=== PATIENT | male | born 1990 | race Caucasian/White ===

== ENCOUNTER 2023-07-04 08:13 | Emergency (ER) | payer OTHER ==
--- NOTE | 2023-07-04 08:36 | ED ---
Alcohol HPI - General Chief Complaint: Alcohol Stated Complaint: withdrawls Source: patient Mode of arrival: ambulatory Limitations: no limitations - History of Present Illness Initial Comments: 32-year-old male presents to the emergency department for "alcohol withdrawal". Patient states that he thinks he is going through withdrawal. States his last drink was around 5:00 this morning. He normally drinks a pint of alcohol a day. Patient is requesting Ativan for withdrawal. He is requesting help in getting sober. States he has been through rehab multiple times. Patient is accompanied by a friend who confirms this. Upon putting the patient into his exam room he does attempt to get out of the wheelchair and fell and hit his head. There was no loss of consciousness. HPI is limited because of patient's current intoxicated state - Related Data Home Medications Medication Instructions Recorded Confirmed Cyanocobalamin [Vitamin B-12] 1,000 mcg PO DAILY 09/19/15 09/19/15 Allergies Allergy/AdvReac Type Severity Reaction Status Date / Time No Known Allergies Allergy Verified 09/19/15 16:04 Review of Systems ROS Statement: Those systems with pertinent positive or pertinent negative responses have been documented in the HPI. ROS Other: All systems not noted in ROS Statement are negative. Past Medical History Past Medical History: No Reported History Additional Past Medical History / Comment(s): back pain, history of delirium tremens, history of alcoholism, history of chronic back pain, history of anxiety, and history of panic disorder. History of Any Multi-Drug Resistant Organisms: None Reported Past Surgical History: No Surgical Hx Reported Past Anesthesia/Blood Transfusion Reactions: No Reported Reaction Past Psychological History: Anxiety Past Alcohol Use History: Abuse, Daily, Heavy Past Drug Use History: Marijuana - Past Family History Father Additional Family Medical History / Comment(s): shoulder sx Mother History Unknown: Yes Additional Family Medical History / Comment(s): healthy General Exam Limitations: altered mental status General appearance: alert, appears intoxicated Head exam: Present: other (Small hematoma left forehead) Eye exam: Present: normal appearance, PERRL, EOMI. Absent: scleral icterus, conjunctival injection, periorbital swelling ENT exam: Present: normal exam, mucous membranes moist Respiratory exam: Present: normal lung sounds bilaterally. Absent: respiratory distress, wheezes, rales, rhonchi, stridor Cardiovascular Exam: Present: normal rhythm, tachycardia, normal heart sounds. Absent: systolic murmur, diastolic murmur, rubs, gallop, clicks GI/Abdominal exam: Present: soft, normal bowel sounds. Absent: distended, tende rness, guarding, rebound, rigid Neurological exam: Present: altered Psychiatric exam: Present: agitated Course Vital Signs 07/04/23 07/04/23 07/04/23 08:20 08:40 10:10 Temperature 97.7 F Pulse Rate 111 H 106 H 90 Respiratory 20 18 20 Rate Blood Pressure 127/81 118/76 104/71 O2 Sat by Pulse 96 96 96 Oximetry 07/04/23 07/04/23 11:00 11:30 Temperature Pulse Rate 73 71 Respiratory 20 17 Rate Blood Pressure 105/67 92/79 O2 Sat by Pulse 96 96 Oximetry Medical Decision Making - Medical Decision Making Was pt. sent in by a medical professional or institution (, PA, GENOMICS SCIENTIST, urgent care, hospital, or assisted...) When possible be specific @ -No Did you speak to anyone other than the patient for history (EMS, parent, family, police, friend...)? What history was obtained from this source @I spoke with the patient's friend Did you review nursing and triage notes (agree or disagree)? Why? @ -I reviewed and agree with nursing and triage notes Were old charts reviewed (outside hosp., previous admission, EMS record, old EKG, old radiological studies, urgent care reports/EKG's, assisted records)? Report findings @ -No old charts were reviewed Differential Diagnosis (chest pain, altered mental status, abdominal pain women, abdominal pain men, vaginal bleeding, weakness, fever, dyspnea, syncope, headache, dizziness, GI bleed, back pain, seizure, CVA, palpatations, mental health, musculoskeletal)? @ -Alcohol intoxication, alcohol withdrawal, drug use, depression EKG interpreted by me (3pts min.). @ -Not done X-rays interpreted by me (1pt min.). @ -None done CT interpreted by me (1pt min.). @ -Yes and demonstrates no acute intracranial process. No cervical fractures U/S interpreted by me (1pt. min.). @ -None done What testing was considered but not performed or refused? (CT, X-rays, U/S, labs)? Why? @ -None What meds were considered but not given or refused? Why? @ -CIWA protocol however patient refused admission Did you discuss the management of the patient with other professionals (professionals i.e. , PA, GENOMICS SCIENTIST, lab, RT, psych nurse, nursing home social worker, consulting solution manager, teacher, upscale security officer, case managers)? Give summary @ -No Was smoking cessation discussed for >3mins.? @ -No Was critical care preformed (if so, how long)? @ -No Were there social determinants of health that impacted care today? How? (Homelessness, low income, unemployed, alcoholism, drug addiction, transportation, low edu. Level, literacy, decrease access to med. care, half-way, rehab)? @ -Alcoholism Was there de-escalation of care discussed even if they declined (Discuss DNR or withdrawal of care, Hospice)? DNR status @ -No What co-morbidities impacted this encounter? (DM, HTN, Smoking, COPD, CAD, Cancer, CVA, ARF, Chemo, Hep., AIDS, mental health diagnosis, sleep apnea, morbid obesity)? @ -Alcohol abuse Was patient admitted / discharged? Hospital course, mention meds given and route, prescriptions, significant lab abnormalities, going to OR and other pertinent info. @ -Upon arrival patient was placed into room for. He did attempt to get out of the wheelchair and hit his head. Patient placed in a c-collar and does go for CT however he removes the collar on his own even though we have asked him multiple times to leave it on. Patient is aggressive towards staff. He is upset that he is not receiving 4 mg of Ativan at a time. Patient is significantly intoxicated and does not demonstrate any signs of withdrawal. Laboratory studies are conducted. As patient has withdrawn from alcohol significant the plan was to offer admission. I was unable to get to this point as the patient becomes agitated with staff and his friend at bedside. Patient wants to leave so he can "go do shots". It was recommended by the staff that the patient await my recommendations however he becomes physical. Patient gets out of bed and verbally is screaming at staff. Multiple attempts to de-escalate the patient however he still remains threatening. Friend is willing to take him home. I instructed staff to not physically restrain patient as to prevent anyone from getting hurt as the patient cannot be de-escalated. The friend reports that he will take the patient home but plans to cut ties with the patient as he has done this multiple times in the past with being verbally aggressive towards healthcare staff and leaving AGAINST MEDICAL ADVICE. Patient was instructed by nursing staff to return should he be agreeable to admission Undiagnosed new problem with uncertain prognosis? @ -No Drug Therapy requiring intensive monitoring for toxicity (Heparin, Nitro, Insulin, Cardizem)? @ -No Were any procedures done? @ -No Diagnosis/symptom? @ -Acute alcohol intoxication, blunt head trauma, fall, history of significant alcohol abuse Acute, or Chronic, or Acute on Chronic? @ -Acute Uncomplicated (without systemic symptoms) or Complicated (systemic symptoms)? @ -Complicated Side effects of treatment? @ -No Exacerbation, Progression, or Severe Exacerbation? @ -No Poses a threat to life or bodily function? How? (Chest pain, USA, DC, pneumonia, PE, COPD, DKA, ARF, appy, cholecystitis, CVA, Diverticulitis, Homicidal, Suicidal, threat to staff... and all critical care pts) @ -Yes - Lab Data Result diagrams: 07/04/23 09:33 07/04/23 09:33 Lab Results 07/04/23 07/04/23 07/04/23 Range/Units 08:36 09:33 09:33 WBC 6.1 (3.8-10.6) k/uL RBC 5.07 (4.30-5.90) m/uL Hgb 15.1 (13.0-17.5) gm/dL Hct 44.2 (39.0-53.0) % MCV 87.1 (80.0-100.0) fL MCH 29.7 (25.0-35.0) pg MCHC 34.1 (31.0-37.0) g/dL RDW 12.8 (11.5-15.5) % Plt Count 230 (150-450) k/uL MPV 7.8 Neutrophils % 52 % Lymphocytes % 38 % Monocytes % 3 % Eosinophils % 4 % Basophils % 1 % Neutrophils # 3.2 (1.3-7.7) k/uL Lymphocytes # 2.3 (1.0-4.8) k/uL Monocytes # 0.2 (0-1.0) k/uL Eosinophils # 0.3 (0-0.7) k/uL Basophils # 0.1 (0-0.2) k/uL Sodium 145 (137-145) mmol/L Potassium 3.6 (3.5-5.1) mmol/L Chloride 109 H (98-107) mmol/L Carbon Dioxide 25 (22-30) mmol/L Anion Gap 11 mmol/L BUN 7 L (9-20) mg/dL Creatinine 0.64 L (0.66-1.25) mg/dL Est GFR (CKD-EPI)AfAm >90 (>60 ml/min/1.73 sqM) Est GFR (CKD-EPI)NonAf >90 (>60 ml/min/1.73 sqM) Glucose 106 H (74-99) mg/dL POC Glucose (mg/dL) 84 (70-110) mg/dL POC Glu Want Ad Clerk ID Amada Negrete Calcium 8.5 (8.4-10.2) mg/dL Magnesium 1.8 (1.6-2.3) mg/dL Total Bilirubin 0.7 (0.2-1.3) mg/dL AST 50 (17-59) U/L ALT 21 (4-49) U/L Alkaline Phosphatase 85 (38-126) U/L Total Protein 6.8 (6.3-8.2) g/dL Albumin 4.2 (3.5-5.0) g/dL Lipase 103 (23-300) U/L Serum Alcohol 357 H* mg/dL Disposition Clinical Impression: Acute alcohol intoxication Disposition: LEFT AGAINST MEDICAL ADVICE Condition: Undetermined Is patient prescribed a controlled substance at d/c from ED?: No Referrals: Nonstaff,Physician [Primary Care Provider] - 1-2 days Time of Disposition: 11:58
[2023-07-04 08:38] LABS: Glucose,Whole Blood 84 mg/dL (70-110)
[2023-07-04 08:53] VITALS: TEMP 97.7
--- NOTE | 2023-07-04 09:36 | CT ---
EXAMINATION TYPE: CT brain margie wo con DATE OF EXAM: 07/04/2023 COMPARISON: 09/19/2015 HISTORY: FALL CT DLP: 1243.7 mGycm, Automated exposure control for dose reduction was used. CONTRAST: Patient injected with 0 mL of Isovue 300. CT of the brain is performed utilizing 3 mm thick sections through the posterior fossa and 3 mm thick sections through the remaining calvarium. Study is performed within 24 hours of arrival to the hospital. No abnormal hyperdensity is present to suggest an acute intracranial hemorrhage. No mass lesion is evident. No acute infarcts are evident. Ventricles and sulci are appropriate for the patient age. Paranasal sinuses and mastoid air cells within the [id number] are clear. IMPRESSIONS: 1. No acute intracranial process. Follow-up MRI can be performed as clinically indicated CT cervical spine. COMPARISON: None CT of the cervical spine is performed in the axial plane at 2 mm thick sections. Reconstructed image s in the coronal, and sagittal plane are reviewed on the computer. No acute fractures are evident. Vertebral body alignment is normal. Disc heights are preserved. Vertebral body heights are preserved. No spinal canal stenosis is evident. No neural foraminal stenosis is evident. Anterior vertebral body spurring is present C5-6. IMPRESSION: 1. No acute osseous abnormality cervical spine
[2023-07-04] MEDS: SODIUM CHLORIDE 0.9% 1,000 ML IV STA (10:08)
[2023-07-04] MEDS: LORazepam 2 MG/ML INJ IV STA (10:09)
[2023-07-04 10:45] LABS: ALT 21 U/L (4-49); AST 50 U/L (17-59); African American GFR (CKD) >90 (>60 ml/min/1.73 sqM); Albumin 4.2 g/dL (3.5-5.0); Alkaline Phosphatase 85 U/L (38-126); Anion Gap 11 mmol/L; Blood Urea Nitrogen 7 mg/dL (9-20); Calcium 8.5 mg/dL (8.4-10.2); Carbon Dioxide 25 mmol/L (22-30); Chloride 109 mmol/L (98-107); Glucose 106 mg/dL (74-99); Lipase 103 U/L (23-300); Magnesium 1.8 mg/dL (1.6-2.3); Non-African American GFR(CKD) >90 (>60 ml/min/1.73 sqM); Potassium 3.6 mmol/L (3.5-5.1); Sodium 145 mmol/L (137-145); Total Bilirubin 0.7 mg/dL (0.2-1.3); Total Protein 6.8 g/dL (6.3-8.2)
[2023-07-04 10:51] LABS: Basophils # (A) 0.1 k/uL (0-0.2); Basophils % (A) 1 %; Eosinophils # (A) 0.3 k/uL (0-0.7); Eosinophils % (A) 4 %; HCT 44.2 % (39.0-53.0); HGB 15.1 gm/dL (13.0-17.5); Lymphocytes # (A) 2.3 k/uL (1.0-4.8); Lymphocytes % (A) 38 %; MCH 29.7 pg (25.0-35.0); MCHC 34.1 g/dL (31.0-37.0); MCV 87.1 fL (80.0-100.0); Mean Platelet Volume 7.8; Monocytes # (A) 0.2 k/uL (0-1.0); Monocytes % (A) 3 %; Neutrophils # (A) 3.2 k/uL (1.3-7.7); Neutrophils % (A) 52 %; Platelet Count 230 k/uL (150-450); RBC 5.07 m/uL (4.30-5.90); RDW 12.8 % (11.5-15.5); WBC 6.1 k/uL (3.8-10.6)
[2023-07-04 11:08] LABS: Alcohol 357 mg/dL
[2023-07-04 12:13] VITALS: BP 92/79; PULSE 71; RESP 17
== END 2023-07-04 11:58 | disposition left against medical advice (07) ==
LOC: EC 08:13
DX: F10.129 Alcohol abuse with intoxication, unspecified (principal); F12.90 Cannabis use, unspecified, uncomplicated; Z86.59 Personal history of other mental and behavioral disorders; Z53.29 Procedure and treatment not carried out because of patient's decision for other reasons; Y90.8 Blood alcohol level of 240 mg/100 ml or more
CPT/HCPCS: 36415; 80053; 83690; 83735; 85025; 72125; 70450; 99285; 96374; 96361; G0480; J2060; 80320

== ENCOUNTER 2023-07-18 02:36 | Inpatient (IN) | payer OTHER ==
[2023-07-18] MEDS ORDERED: LORazepam 2 MG/ML INJ IV PRN (03:31)
--- NOTE | 2023-07-18 03:33 | ED ---
Alcohol HPI - General Source: patient Mode of arrival: ambulatory Limitations: no limitations <Markell Hernandez - Last Filed: 07/18/23 04:01> <Gabe Dan - Last Filed: 07/18/23 04:53> - General Chief Complaint: Alcohol Stated Complaint: Withdraw Time Seen by Provider: 07/18/23 03:06 - History of Present Illness Initial Comments: 32-year-old male presenting to the ED with a chief complaint of alcohol withdrawal. Patient reports that he drinks half a gallon of 100 proof vodka on a daily basis. States that his last drink was at 9 PM yesterday. Reports that he does have history of delirium tremens in the past. Currently notes some nausea, headache, tremors, and [id number]. No fever or chills. Denies auditory or visual hallucinations. No other complaints at this time. (Markell Hernandez) - Related Data Home Medications Medication Instructions Recorded Confirmed Cyanocobalamin [Vitamin B-12] 1,000 mcg PO DAILY 09/19/15 09/19/15 Allergies Allergy/AdvReac Type Severity Reaction Status Date / Time No Known Allergies Allergy Verified 07/18/23 02:57 Review of Systems ROS Other: All systems not noted in ROS Statement are negative. <Markell Hernandez - Last Filed: 07/18/23 04:01> ROS Other: All systems not noted in ROS Statement are negative. <Gabe Dan - Last Filed: 07/18/23 04:53> ROS Statement: Those systems with pertinent positive or pertinent negative responses have been documented in the HPI. Past Medical History Past Medical History: No Reported History Additional Past Medical History / Comment(s): back pain, history of delirium tremens, history of alcoholism, history of chronic back pain, history of anxiety, and history of panic disorder. History of Any Multi-Drug Resistant Organisms: None Reported Past Surgical History: No Surgical Hx Reported Past Anesthesia/Blood Transfusion Reactions: No Reported Reaction Past Psychological History: Anxiety Smoking Status: Former smoker Past Alcohol Use History: Abuse, Daily, Heavy Past Drug Use History: Marijuana - Past Family History Father Additional Family Medical History / Comment(s): shoulder sx Mother History Unknown: Yes Additional Family Medical History / Comment(s): healthy <Markell Hernandez - Last Filed: 07/18/23 04:01> General Exam Limitations: no limitations General appearance: alert, in no apparent distress Eye exam: Present: normal appearance ENT exam: Present: mucous membranes moist Respiratory exam: Present: normal lung sounds bilaterally Cardiovascular Exam: Present: tachycardia GI/Abdominal exam: Present: soft (No tenderness to palpation.) Extremities exam: Present: other (Extremities tremulous upon extension) Neurological exam: Present: alert, oriented X3, other Skin exam: Present: warm, other (Palms are moist.) <Markell Hernandez - Last Filed: 07/18/23 04:01> Course Vital Signs 07/18/23 07/18/23 02:53 04:40 Temperature 98.0 F Pulse Rate 135 H 115 H Respiratory 18 20 Rate Blood Pressure 109/72 131/92 O2 Sat by Pulse 95 94 L Oximetry Procedures - Central Line Placement Right IJ Consent Obtained: verbal consent, emergent situation Patient Placed on Monitor/Pulse Ox: Yes MD Prep: mask, gown, gloves Central Line Prep: Povidone-Iodine 1% Local Anesthesia Used: Lidocaine 1% Ultrasound Used for Placement: Yes Central Line Lumen Inserted: triple Bloods Obtained for Lab: No Central Line Position: good blood return, all ports aspirated, flushed, capped, sutured in place with 2-0 silk, sutured in place with 3-0 nylon Dressing Applied: Tegaderm Post Procedure X-Ray: tip of catheter in good position Patient Tolerated Procedure: well <Gabe Dan - Last Filed: 07/18/23 04:53> Medical Decision Making <Markell Hernandez - Last Filed: 07/18/23 04:01> - Lab Data Result diagrams: 07/18/23 03:45 07/18/23 04:00 <Gabe Dan - Last Filed: 07/18/23 04:53> - Medical Decision Making Was pt. sent in by a medical professional or institution (, PA, CLIENT SERVICES COORDINATOR, urgent care, hospital, or halfway...) When possible be specific @ -No Did you speak to anyone other than the patient for history (EMS, parent, family, police, friend...)? What history was obtained from this source @ -No Did you review nursing and triage notes (agree or disagree)? Why? @ -I reviewed and agree with nursing and triage notes Were old charts reviewed (outside hosp., previous admission, EMS record, old EKG, old radiological studies, urgent care reports/EKG's, halfway records)? Report findings @ -Prior charts reviewed showing history of alcohol withdrawal. At prior visit was very agitated and left AGAINST MEDICAL ADVICE. Differential Diagnosis (chest pain, altered mental status, abdominal pain women, abdominal pain men, vaginal bleeding, weakness, fever, dyspnea, syncope, headache, dizziness, GI bleed, back pain, seizure, CVA, palpatations, mental health, musculoskeletal)? @ -Not applicable EKG interpreted by me (3pts min.). @ -As above X-rays interpreted by me (1pt min.). @ -None done CT interpreted by me (1pt min.). @ -None done U/S interpreted by me (1pt. min.). @ -None done What testing was considered but not performed or refused? (CT, X-rays, U/S, labs)? Why? @ -None What meds were considered but not given or refused? Why? @ -None Did you discuss the management of the patient with other professionals (professionals i.e. , PA, CLIENT SERVICES COORDINATOR, lab, RT, psych nurse, social welfare clerk, log check scaler, teacher, parole hearing officer, pillowcase cleaner)? Give summary @ -No Was smoking cessation discussed for >3mins.? @ -No Was critical care preformed (if so, how long)? @ -No Were there social determinants of health that impacted care today? How? (Homelessness, low income, unemployed, alcoholism, drug addiction, transportation, low edu. Level, literacy, decrease access to med. care, fdc, rehab)? @ -No Was there de-escalation of care discussed even if they declined (Discuss DNR or withdrawal of care, Hospice)? DNR status @ -No What co-morbidities impacted this encounter? (DM, HTN, Smoking, COPD, CAD, Cancer, CVA, ARF, Chemo, Hep., AIDS, mental health diagnosis, sleep apnea, morbid obesity)? @ -Alcohol abuse Was patient admitted / discharged? Hospital course, mention meds given and route, prescriptions, significant lab abnormalities, going to OR and other pertinent info. @ -Disposition currently pending. Case signed out to my attending physician, Dr. Dan for further management. (Markell Hernandez) Patient care signed out to me by Merlin. 32-year-old male presents to the ER for alcohol withdrawal symptoms. Patient highly motivated to quit EtOH. He is he is appearing to show significant signs of withdrawal. Difficulty obtaining IV. Right IJ central venous catheter placed under ultrasound guidance. Placement is adequate. Case discussed with nurse practitioner Mr. Blair of the ICU is willing to accept patient care to the ICU. (Gabe Dan) - Lab Data Lab Results 07/18/23 07/18/23 Range/Units 03:45 04:00 WBC 6.4 (3.8-10.6) k/uL RBC 5.42 (4.30-5.90) m/uL Hgb 15.7 (13.0-17.5) gm/dL Hct 47.5 (39.0-53.0) % MCV 87.7 (80.0-100.0) fL MCH 28.9 (25.0-35.0) pg MCHC 32.9 (31.0-37.0) g/dL RDW 15.1 (11.5-15.5) % Plt Count 249 (150-450) k/uL MPV 8.5 Neutrophils % 59 % Lymphocytes % 29 % Monocytes % 7 % Eosinophils % 2 % Basophils % 1 % Neutrophils # 3.8 (1.3-7.7) k/uL Lymphocytes # 1.9 (1.0-4.8) k/uL Monocytes # 0.5 (0-1.0) k/uL Eosinophils # 0.1 (0-0.7) k/uL Basophils # 0.1 (0-0.2) k/uL Sodium 142 (137-145) mmol/L Potassium 4.5 (3.5-5.1) mmol/L Chloride 106 (98-107) mmol/L Carbon Dioxide 24 (22-30) mmol/L Anion Gap 12 mmol/L BUN 7 L (9-20) mg/dL Creatinine 0.61 L (0.66-1.25) mg/dL Est GFR (CKD-EPI)AfAm >90 (>60 ml/min/1.73 sqM) Est GFR (CKD-EPI)NonAf >90 (>60 ml/min/1.73 sqM) Glucose 88 (74-99) mg/dL Calcium 9.0 (8.4-10.2) mg/dL Total Bilirubin 1.4 H (0.2-1.3) mg/dL AST 74 H (17-59) U/L ALT 29 (4-49) U/L Alkaline Phosphatase 95 (38-126) U/L Total Protein 7.7 (6.3-8.2) g/dL Albumin 4.7 (3.5-5.0) g/dL Serum Alcohol 235 H* mg/dL Critical Care Time Critical Care Time: Yes Total Critical Care Time: 33 <Gabe Dan - Last Filed: 07/18/23 04:53> Disposition <Markell Hernandez - Last Filed: 07/18/23 04:01> Decision Time: 04:53 <Gabe Dan - Last Filed: 07/18/23 04:53> Clinical Impression: Alcohol withdrawal Disposition: ADMITTED IP TO THIS HOSP Condition: Critical Referrals: Nonstaff,Physician [Primary Care Provider] - 1-2 days
[2023-07-18] MEDS: THIAMINE 100 MG/ML 2 ML VIAL IM STA (03:58)
[2023-07-18] MEDS: LORazepam 2 MG/ML INJ IV STA ×2 (03:58→04:30)
[2023-07-18] MEDS: LORazepam 2 MG/ML INJ IM STA (03:58)
[2023-07-18 04:01] LABS: Basophils # (A) 0.1 k/uL (0-0.2); Basophils % (A) 1 %; Eosinophils # (A) 0.1 k/uL (0-0.7); Eosinophils % (A) 2 %; HCT 47.5 % (39.0-53.0); HGB 15.7 gm/dL (13.0-17.5); Lymphocytes # (A) 1.9 k/uL (1.0-4.8); Lymphocytes % (A) 29 %; MCH 28.9 pg (25.0-35.0); MCHC 32.9 g/dL (31.0-37.0); MCV 87.7 fL (80.0-100.0); Mean Platelet Volume 8.5; Monocytes # (A) 0.5 k/uL (0-1.0); Monocytes % (A) 7 %; Neutrophils # (A) 3.8 k/uL (1.3-7.7); Neutrophils % (A) 59 %; Platelet Count 249 k/uL (150-450); RBC 5.42 m/uL (4.30-5.90); RDW 15.1 % (11.5-15.5); WBC 6.4 k/uL (3.8-10.6)
[2023-07-18 04:22] LABS: ALT 29 U/L (4-49); African American GFR (CKD) >90 (>60 ml/min/1.73 sqM); Anion Gap 12 mmol/L; Blood Urea Nitrogen 7 mg/dL (9-20); Carbon Dioxide 24 mmol/L (22-30); Chloride 106 mmol/L (98-107); Glucose 88 mg/dL (74-99); Non-African American GFR(CKD) >90 (>60 ml/min/1.73 sqM); Sodium 142 mmol/L (137-145)
[2023-07-18 04:31] LABS: Alcohol 235 mg/dL; Potassium 4.5 mmol/L (3.5-5.1); Total Protein 7.7 g/dL (6.3-8.2)
[2023-07-18 04:32] LABS: AST 74 U/L (17-59); Albumin 4.7 g/dL (3.5-5.0); Alkaline Phosphatase 95 U/L (38-126); Total Bilirubin 1.4 mg/dL (0.2-1.3)
[2023-07-18] MEDS: SODIUM CHLORIDE 0.9% 1,000 ML IV STA (04:45)
[2023-07-18] MEDS ORDERED: NALOXONE 0.4 MG/ML 1 ML VIAL IV PRN (04:53)
--- NOTE | 2023-07-18 05:00 | XR ---
EXAMINATION TYPE: XR chest 1V portable DATE OF EXAM: 07/18/2023 COMPARISON: Chest x-ray June 28, 2014 HISTORY: Central line insertion. TECHNIQUE: Single frontal view of the chest is obtained. FINDINGS: There is right internal jugular central venous catheter terminating in the right heart. No pneumothorax seen bilaterally. Lungs remain clear. The cardiac silhouette size is stable and within n ormal limits. The osseous structures are intact. IMPRESSION: As above.
[2023-07-18] MEDS: LORazepam 2 MG/ML INJ IV PRN ×2 (05:09→09:32)
[2023-07-18 06:07] LABS: Glucose,Whole Blood 112 mg/dL (70-110)
[2023-07-18] MEDS: SODIUM CHLORIDE 0.9% 1,000 ML IV SCH (06:16)
--- NOTE | 2023-07-18 06:33 | P.CNPUL ---
History of Present Illness Consult date: 07/18/23 Requesting physician: Gabe Dan Reason for consult: other (ICU management; acute alcohol withdrawal delirium tremens) Chief complaint: Alcohol withdrawal History of present illness: I am seeing this patient in consultation today in the emergency room for acute alcohol withdrawal delirium tremens. Patient is a 32-year-old white male with past medical history significant for alcoholism, reportedly drinks half a gallon of vodka per day. He has history of previous alcohol w ithdrawal requiring mechanical intubation, previous alcohol withdrawal seizures anxiety disorder, marijuana use, smoker. Last seizure reported in 2019. He did have a recent ER visit 07/04/2023 for the same, and left AGAINST MEDICAL ADVICE. He lives in [place], [place], but is in the area visiting his girlfriend. His last drink was reportedly yesterday at 9 PM. He presented to the emergency room earlier this morning with nausea and vomiting, headaches, generalized tremors, [id number]. Denies auditory or visual hallucinations. Denies infectious symptoms. Denies hematemesis. Denies history of esophageal varices. Denies history of previous EGD. Denies diarrhea or gabriel blood loss or melena. Denies abdominal pain. He was actually intoxicated on arrival with a serum alcohol level 235. CBC and BMP on arrival unremarkable. LFTs with an AST of 74, ALT of 29, ALP of 95. Normal saline is infusing at 120 MLS per hour. A right IJ triple-lumen catheter was placed because the patient has poor peripheral IV access. Chest x-ray was done to confirm placement. No acute cardiopulmonary process noted. He is currently sitting up in bed, on room air, he is anxious. His oriented x3. He is tachycardic on bedside monitor with a heart rate of 120 bpm. He has generalized tremoring. Admits nausea, but is eating potatoe chips and drinking Pedialyte. Diaphoretic. Most recent CIWA score 22. Patient has received a total of 6 mg of Ativan so far. He has been started on the CIWA protocol. Vital signs are stable. Review of Systems REVIEW OF SYSTEMS: CONSTITUTIONAL: Denies any recent significant weight loss or weight gain. EYES: Denies change in vision. EARS, NOSE, MOUTH, THROAT: denies sore throat, rhinorrhea. CARDIOVASCULAR: Denies chest pain, palpitations or syncopal episodes. RESPIRATORY: Denies shortness of breath, cough, congestion or hemoptysis. GASTROINTESTINAL: See HPI GENITOURINARY: Denies hematuria, denies infections. MUSKULOSKELETAL: Denies pain, denies swelling. INTEGUMENTARY: Denies rash, denies eczema. NEUROLOGICAL: last reported seizure was 2019. See HPI PSYCHIATRIC: Admits anxiety, denies depression. HEMATOLOGIC/LYMPHATIC: Denies anemia, denies enlarged lymph node Past Medical History Past Medical History: No Reported History Additional Past Medical History / Comment(s): back pain, history of delirium tremens, history of alcoholism, history of chronic back pain, history of anxiety, and history of panic disorder. History of Any Multi-Drug Resistant Organisms: None Reported Past Surgical History: No Surgical Hx Reported Past Anesthesia/Blood Transfusion Reactions: No Reported Reaction Past Psychological History: Anxiety Smoking Status: Former smoker Past Alcohol Use History: Abuse, Daily, Heavy Past Drug Use History: Marijuana - Past Family History Father Additional Family Medical History / Comment(s): shoulder sx Mother History Unknown: Yes Additional Family Medical History / Comment(s): healthy Medications and Allergies Home Medications Medication Instructions Recorded Confirmed Type Cyanocobalamin [Vitamin B-12] 1,000 mcg PO DAILY 09/19/15 09/19/15 History Allergies Allergy/AdvReac Type Severity Reaction Status Date / Time No Known Allergies Allergy Verified 07/18/23 02:57 Physical Exam Vitals: Vital Signs Temp Pulse Resp BP Pulse Ox 07/18/23 05:20 98 20 147/75 96 07/18/23 05:00 118 H 22 139/91 98 07/18/23 04:40 115 H 20 131/92 94 L 07/18/23 02:53 98.0 F 135 H 18 109/72 95 Intake and Output 07/17/23 07/17/23 07/18/23 14:59 22:59 06:59 Other: Weight 72.575 kg GENERAL EXAM: Alert, 32-year-old white male, anxious, diaphoretic, tachycardic. HEAD: Normocephalic and atraumatic EYES: Normal reaction of pupils, equal size. NOSE: Clear with pink turbinates. THROAT: No erythema or exudates. NECK: No masses, no JVD. CHEST: No chest wall deformity. LUNGS: Equal air entry with no crackles, wheeze, rhonchi or dullness. On room air. No conversational dyspnea or accessory muscle use.. CVS: S1 and S2 normal with no audible murmur, regular rhythm. No extra heart sounds ABDOMEN: No hepatosplenomegaly, active bowel sounds, no guarding or rigidity. SPINE: No scoliosis or deformity SKIN: No rashes CENTRAL NERVOUS SYSTEM: Anxious, oriented x 3, generalized resting tremor, no focal deficits, tone is normal in all 4 extremities. EXTREMITIES: There is no peripheral edema, clubbing, or cyanosis. Peripheral pulses are intact. Results - Laboratory Findings CBC and BMP: 07/18/23 03:45 07/18/23 04:00 Abnormal lab findings: Abnormal Labs 07/18/23 07/18/23 04:00 06:05 BUN 7 L Creatinine 0.61 L POC Glucose (mg/dL) 112 H Total Bilirubin 1.4 H AST 74 H Serum Alcohol 235 H* - Diagnostic Findings Chest x-ray: image reviewed Assessment and Plan Assessment: Acute alcohol intoxication, impending alcohol withdrawal delirium tremens History of history of alcoholism, reportedly drinks 1/2 gallon of vodka per day, last drink reportedly yesterday at 9 PM History of alcohol withdrawal seizures, last reported seizure 2020 History of chronic anxiety and panic disorder Marijuana use Plan: Patient's medications, labs, chest x-ray reviewed Central line was inserted because of poor peripheral IV access, tip is at the Cavoatrial junction on chest x-ray Patient has been started on the CIWA protocol, received a total of 6 mg of Ativan so far Provide Vitamin B1 supplementation Seizure precautions. urine drug screen pending Patient will be admitted to the intensive care unit for impending alcohol withdrawal delirium tremens I have personally seen and examined the patient, performed the documentation and the assessment and plan as written. Number of minutes spent on the visit:20 Time with Patient: Greater than 30
[2023-07-18] MEDS: FOLIC ACID 1 MG TAB PO SCH (09:32)
[2023-07-18] MEDS: QUEtiapine 50 MG TAB PO SCH (09:32)
[2023-07-18] MEDS: MULTIVITAMINS, THERA 1 EACH TAB PO SCH (09:32)
[2023-07-18 09:43] LABS: Appearance,Urine Cloudy (Clear); Bilirubin,Urine Negative (Negative); Blood,Urine Negative (Negative); Calcium Oxalate Crystals,Urine Occasional /hpf; Color,Urine Yellow; Glucose,Urine (UA) Negative (Negative); Ketones,Urine 1+ (Negative); Leukocyte Esterase,Urine Trace (Negative); Mucus,Urine Many /hpf; Nitrite,Urine Negative (Negative); PH, Urine 7.5 (5.0-8.0); Protein,Urine 1+ (Negative); Specific Gravity,Urine 1.026 (1.001-1.035); Squamous Epithelial Cell,Urine 1 /hpf (0-4); WBC,Urine 6 /hpf (0-5)
[2023-07-18 09:52] LABS: Amphetamine Screen,Urine Not Detected (NotDetected); Barbiturate Screen,Urine Detected (NotDetected); Benzodiazepines Screen,Urine Not Detected (NotDetected); Cocaine Screen,Urine Not Detected (NotDetected); Methadone Screen, Urine Not Detected (NotDetected); Opiate Screen,Urine Not Detected (NotDetected); Oxycodone Screen, Urine Not Detected (NotDetected); Phencyclidine Screen,Urine Not Detected (NotDetected); Tricyclic Antidepressant,Urine Not Detected (NotDetected); Urn Cannabinoid Scrn Not Detected (NotDetected)
--- NOTE | 2023-07-18 13:39 | P.HPIM ---
History of Present Illness H&P Date: 07/18/23 This is a pleasant 32-year-old male with medical history of chronic alcoholism, anxiety and panic disorder. Patient reports drinking a half a gallon of vodka daily and has been on a 12-day binge. Patient was recently hospitalized at [facility] he states he was at [facility] for similar complaints of alcohol withdrawal and seizure. States that he did leave AGAINST MEDICAL ADVICE and has been drinking ever since. Noted that he is on Eliquis 5 mg twice a day states that he was diagnosed with a blood clot in his left arm. We will request reports from [facility] for review. Eliquis has been resumed. He does report prior history of alcohol withdrawal seizure and delirium tremens he was admitted to the hospital under medicine and started on Ativan CIWA protocol subsequently he was admitted to the intensive care unit for a CIWA score of 22 after receiving 6 mg of IV Ativan earlier this morning. Chest x-ray admission shows central line insertion in place with no pneumothorax seen bilaterally lungs remain clear. EKG revealing sinus tachycardia heart rate of [address] or T wave changes noted. Hemoglobin is stable at 15.7, BUN of 7, creatinine of 0.61 magnesium at 2.1. Patient's bilirubin is mildly elevated at 1.4 with an AST of 74. Urinalysis is not suggestive of infection and his urine drug toxicology is positive for barbiturates and serum alcohol level of 235. REVIEW OF SYSTEMS: CONSTITUTIONAL: No fever, no malaise, no fatigue. HEENT: No recent visual problems or hearing problems. Denied any sore throat. CARDIOVASCULAR: No chest pain, orthopnea, PND, no palpitations, no syncope. PULMONARY: No shortness of breath, no cough, no hemoptysis. GASTROINTESTINAL: No diarrhea, no nausea, no vomiting, no abdominal pain. NEUROLOGICAL: No headaches, no weakness, no numbness. Reports auditory hallucinations he states that the TV is moving around the wall. HEMATOLOGICAL: Denies any bleeding or petechiae. GENITOURINARY: Denies any burning micturition, frequency, or urgency. MUSCULOSKELETAL/RHEUMATOLOGICAL: Denies any joint pain, swelling, or any muscle pain. ENDOCRINE: Denies any polyuria or polydipsia. The rest of the 14-point review of systems is negative. PHYSICAL EXAMINATION: GENERAL: The patient is alert and oriented x3, not in any acute distress. Well developed, well nourished. HEENT: Pupils are round and equally reacting to light. EOMI. No scleral icterus. No conjunctival pallor. Normocephalic, atraumatic. No pharyngeal erythema. No thyromegaly. CARDIOVASCULAR: S1 and S2 present. No murmurs, rubs, or gallops. PULMONARY: Chest is clear to auscultation, no wheezing or crackles. ABDOMEN: Soft, nontender, nondistended, normoactive bowel sounds. No palpable organomegaly. MUSCULOSKELETAL: No joint swelling or deformity. EXTREMITIES: No cyanosis, clubbing, or pedal edema. NEUROLOGICAL: Gross neurological examination did not reveal any focal deficits. Patient is tremulous resting in bed. SKIN: No rashes. Assessment and plan -Acute alcohol intoxication with impending delirium tremens patient has history of alcohol withdrawal seizure and will be monitored closely in the intensive care unit patient is currently on IV Ativan CIWA protocol with close monitoring may require IV medication. -History of deep vein thrombosis of the left arm per patient had a prior hospitalization he has been resumed on Eliquis and reports will be obtained from outside hospital. -History of anxiety and panic disorder not currently on any medication for this -Mildly elevated LFTs secondary to chronic alcoholism GI prophylaxis DVT prophylaxis maintained on Eliquis full code Patient will be monitored in the intensive care unit on IV Ativan CIWA protocol. Will follow-up labs in the morning and we are pending reports of outside hospital. Pulmonary certified peer specialist is following closely. The impression and plan of care has been dictated by Sarah Nova Nurse Practitioner as directed. Dr. Lilliana MD I have performed a history and physical examination and medical decision making of this patient, discussed the same with the dictator, and agree with the dictators assessment and plan as written, documented as a scribe. Based on total visit time, I have performed more than 50% of this visit. Past Medical History Past Medical History: No Reported History Additional Past Medical History / Comment(s): back pain, history of delirium tremens, history of alcoholism, history of chronic back pain, history of anxiety, and history of panic disorder. History of Any Multi-Drug Resistant Organisms: None Reported Past Surgical History: No Surgical Hx Reported Past Anesthesia/Blood Transfusion Reactions: No Reported Reaction Past Psychological History: Anxiety Smoking Status: Former smoker Past Alcohol Use History: Abuse, Daily, Heavy Past Drug Use History: Marijuana - Past Family History Father Additional Family Medical History / Comment(s): shoulder sx Mother History Unknown: Yes Additional Family Medical History / Comment(s): healthy Medications and Allergies Home Medications Medication Instructions Recorded Confirmed Type Apixaban [Eliquis] 5 mg PO BID 07/18/23 07/18/23 History Allergies Allergy/AdvReac Type Severity Reaction Status Date / Time No Known Allergies Allergy Verified 07/18/23 06:56 Physical Exam Vitals: Vital Signs Temp Pulse Resp BP Pulse Ox 07/18/23 13:00 78 98/62 93 L 07/18/23 12:30 78 100/63 93 L 07/18/23 12:00 75 17 104/66 95 07/18/23 11:30 80 104/64 94 L 07/18/23 11:00 82 18 108/70 94 L 07/18/23 10:00 81 16 121/84 93 L 07/18/23 09:30 92 16 108/77 96 07/18/23 09:00 95 18 105/68 96 07/18/23 08:00 85 21 106/62 92 L 07/18/23 07:30 89 19 113/69 93 L 07/18/23 07:10 93 23 113/69 94 L 07/18/23 07:00 100 23 117/82 94 L 07/18/23 06:50 94 23 117/82 93 L 07/18/23 06:40 98.2 F 97 20 117/82 94 L 07/18/23 06:30 107 H 20 130/83 94 L 07/18/23 06:20 107 H 13 130/83 93 L 07/18/23 06:10 107 H 13 130/83 95 07/18/23 06:05 28 H 07/18/23 05:20 98 20 147/75 96 07/18/23 05:00 118 H 22 139/91 98 07/18/23 04:40 115 H 20 131/92 94 L 07/18/23 02:53 98.0 F 135 H 18 109/72 95 Intake and Output 07/17/23 07/18/23 07/18/23 22:59 06:59 14:59 Intake Total 240 240 Output Total 0 400 Balance 240 -160 Intake: IV 240 Sodium Chloride 0.9% 1, 240 000 ml @ 120 mls/hr IV . Q8H20M [facility] Rx#:[id number] Intake, IV Titration 240 Amount Sodium Chloride 0.9% 1, 240 000 ml @ 120 mls/hr IV . Q8H20M [facility] Rx#:[id number] Output: Urine 0 400 Other: Voiding Method Toilet Urinal Weight 72.575 kg Results CBC & Chem 7: 07/18/23 03:45 07/18/23 04:00 Labs: Abnormal Lab Results - Last 24 Hours (Table) 07/18/23 07/18/23 07/18/23 Range/Units 04:00 06:05 09:20 BUN 7 L (9-20) mg/dL Creatinine 0.61 L (0.66-1.25) mg/dL POC Glucose (mg/dL) 112 H (70-110) mg/dL Total Bilirubin 1.4 H (0.2-1.3) mg/dL AST 74 H (17-59) U/L Urine Protein 1+ H (Negative) Urine Ketones 1+ H (Negative) Ur Leukocyte Esterase Trace H (Negative) Urine WBC 6 H (0-5) /hpf Calcium Oxalate Crystal Occasional H (None) /hpf Urine Mucus Many H (None) /hpf Ur Barbiturates Screen (NotDetected) Serum Alcohol 235 H* mg/dL 07/18/23 Range/Units 09:20 BUN (9-20) mg/dL Creatinine (0.66-1.25) mg/dL POC Glucose (mg/dL) (70-110) mg/dL Total Bilirubin (0.2-1.3) mg/dL AST (17-59) U/L Urine Protein (Negative) Urine Ketones (Negative) Ur Leukocyte Esterase (Negative) Urine WBC (0-5) /hpf Calcium Oxalate Crystal (None) /hpf Urine Mucus (None) /hpf Ur Barbiturates Screen Detected H (NotDetected) Serum Alcohol mg/dL Assessment and Plan Time with Patient: Less than 30
[2023-07-18] MEDS: APIXABAN 5 MG TAB PO SCH (14:33)
[2023-07-18] MEDS: chlordiazePOXIDE 25 MG CAP PO SCH (23:04)
[2023-07-19 04:33] VITALS: TEMP 97.8
--- NOTE | 2023-07-19 06:08 | P.PN ---
Subjective Progress Note Date: 07/19/23 Principal diagnosis: Alcohol withdrawal syndrome. I am seeing this patient in consultation today in the emergency room for acute alcohol withdrawal delirium tremens. Patient is a 32-year-old white male with past medical history significant for alcoholism, reportedly drinks half a gallon of vodka per day. He has history of previous alcohol withdrawal requiring mechanical intubation, previous alcohol withdrawal seizures anxiety disorder, marijuana use, smoker. Last seizure reported in 2019. He did have a recent ER visit 07/04/2023 for the same, and left AGAINST MEDICAL ADVICE. He lives in [place], [place], but is in the area visiting his girlfriend. His last drink was reportedly yesterday at 9 PM. He presented to the emergency room earlier this morning with nausea and vomiting, headaches, generalized tremors, [id number]. Denies auditory or visual hallucinations. Denies infectious symptoms. Denies hematemesis. Denies history of esophageal varices. Denies history of previous EGD. Denies diarrhea or gabriel blood loss or melena. Denies abdominal pain. He was actually intoxicated on arrival with a serum alcohol level 235. CBC and BMP on arrival unremarkable. LFTs with an AST of 74, ALT of 29, ALP of 95. Normal saline is infusing at 120 MLS per hour. A right IJ triple-lumen catheter was placed because the patient has poor peripheral IV acc ess. Chest x-ray was done to confirm placement. No acute cardiopulmonary process noted. He is currently sitting up in bed, on room air, he is anxious. His oriented x3. He is tachycardic on bedside monitor with a heart rate of 120 bpm. He has generalized tremoring. Admits nausea, but is eating potatoe chips and drinking Pedialyte. Diaphoretic. Most recent CIWA score 22. Patient has received a total of 6 mg of Ativan so far. He has been started on the CIWA protocol. Vital signs are stable. Progress note dated July 19, 2023. 32-year-old male with a history of chronic alcohol abuse, and, alcohol withdrawal syndrome. The patient was seen in consultation yesterday. He is seen again today in room 264. He is currently on room air. He is getting saline at 120 cc an hour. He has been getting Ativan, Seroquel, and Librium, as needed. Clinically, according to the nurse, he has been stable. No new labs today. His labs from July 17, have been reviewed. Objective - Vital Signs Vital signs: Vital Signs Temp 97.8 F 07/19/23 04:00 Pulse 73 07/19/23 05:00 Resp 20 07/19/23 05:00 BP 120/85 07/19/23 05:00 Pulse Ox 95 07/19/23 05:00 FiO2 Intake & Output 07/18/23 07/18/23 07/19/23 06:59 18:59 06:59 Intake Total 248 735 5408 Output Total 0 400 850 Balance 240 -160 720 Weight 72.575 kg 79.3 kg Intake: IV 240 1200 Sodium Chloride 0.9% 1, 240 1200 000 ml @ 120 mls/hr IV . Q8H20M [facility] Rx#:[id number] Intake, IV Titration 240 Amount Sodium Chloride 0.9% 1, 240 000 ml @ 120 mls/hr IV . Q8H20M [facility] Rx#:[id number] Oral 370 Output: Urine 0 400 850 Other: Voiding Method Toilet Toilet Urinal Urinal - Exam No acute distress, oriented 3. Currently on room air. HEENT examination is grossly unremarkable. Mucous membranes are moist. No oral lesions. Neck supple. Full range of motion. No adenopathy thyromegaly or neck vein dist ention. Cardiovascular examination reveals regular rhythm rate. S1-S2 normal. No S3 or S4. No discernible murmur noted. Heart rate 73 bpm. Lungs reveal clear breath sounds. Breath sounds are equal bilaterally. No adventitious lung sounds including wheezes rhonchi or crackles. Room air satur ation is 95%. Abdomen soft bowel sounds are heard. No masses or tenderness. Extremities are intact. No cyanosis clubbing or edema. Skin is without rash or lesion. Neurologic examination is brief but nonfocal. - Labs CBC & Chem 7: 07/18/23 03:45 07/18/23 04:00 Labs: Abnormal Lab Results - Last 24 Hours (Table) 07/18/23 07/18/23 07/18/23 Range/Units 06:05 09:20 09:20 POC Glucose (mg/dL) 112 H (70-110) mg/dL Urine Protein 1+ H (Negative) Urine Ketones 1+ H (Negative) Ur Leukocyte Esterase Trace H (Negative) Urine WBC 6 H (0-5) /hpf Calcium Oxalate Crystal Occasional H (None) /hpf Urine Mucus Many H (None) /hpf Ur Barbiturates Screen Detected H (NotDetected) Assessment and Plan Assessment: Acute alcohol intoxication, with impending alcohol withdrawal syndrome/delirium tremens. History of chronic alcohol abuse, drinking 1/2 gallon of vodka, daily. History of alcohol withdrawal seizures/rum fits. History of chronic anxiety and panic disorder. History of marijuana use. Plan: Plan dated July 19, 2023. Currently, the patient is doing relatively well. The patient is currently on room air. He is getting saline at 120 cc an hour. His alcohol withdrawal syndrome is being managed with Ativan as needed, Librium, and Seroquel. No additional recommendations are made. The patient could likely be moved out of the intensive care unit, sometime later today. We will continue to follow and make recommendations along the way. Labs, x-rays, and medications are reviewed. Prognosis is guarded. The patient is counseled about the importance of alcohol cessation. Time with Patient: Less than 30
[2023-07-19] MEDS: THIAMINE 100 MG TAB PO SCH (08:38)
[2023-07-19 09:46] VITALS: BP 127/88; PULSE 69; RESP 19
--- NOTE | 2023-07-21 12:39 | P.DS ---
Providers Date of admission: 07/18/23 04:53 Expected date of discharge: 07/19/23 Attending physician: Chandu Guadalupe Consults: 07/18/23 04:53 Consult Physician Stat Consulting Provider: Glynn Montalvo Reason/Comments: icu patient Do you want consulting provider notified?: Yes Primary care physician: Stated None Hospital Course: Final diagnosis -Acute alcohol intoxication with impending delirium tremens maintained on CIWA protocol -History of deep vein thrombosis of the left arm per patient had a prior hospitalization he has been resumed on Eliquis and reports will be obtained from outside hospital. -History of anxiety and panic disorder not currently on any medication for this -Mildly elevated LFTs secondary to chronic alcoholism, trending down GI prophylaxis DVT prophylaxis maintained on Eliquis full code Discharge disposition Patient is being discharged in a stable condition with guarded prognosis to home. Patient will follow-up with his primary care provider in [place] in the outpatient setting upon discharge. Patient is to continue with Librium taper and patient will be going to inpatient alcohol rehab in [place] as scheduled. Total time taken is greater than 35 minutes. Hospital course This is a 32-year-old male who was recently admitted with acute alcohol intoxication with acute impending delirium tremens maintained on CIWA protocol. Patient was in the ICU briefly requiring high doses of IV Ativan and started on a Librium taper high-dose. Patient is showing significant improvement alert and oriented x 3 reports to feeling well and would like to go home. Patient has an appointment in [place] for inpatient alcohol rehab and would like to be discharged. Patient has been cleared by consultations. Will continue Librium taper on discharge and instructed patient to follow-up with continued alcohol rehab. Currently no reports of chest pain, shortness of breath, or palpitations. Patient is afebrile. No reports of nausea or vomiting and patient is tolerating diet. Patient will be discharged home with plans for having his friend drive him to inpatient alcohol rehab in [place] today. High risk for readmissions given patient's continued alcohol abuse and noncompliance Physical exam: Gen: This is a 32-year-old male who is awake, alert and oriented x 3, well- developed, well-nourished HEENT: Head is atraumatic, normocephalic. Pupils equal, round. Sclerae is anicteric. NECK: Supple. No JVD. No lymphadenopathy. No thyromegaly. LUNGS: Clear to auscultation. No wheezes or rhonchi. No intercostal retractions. HEART: Regular rate and rhythm. No murmur. ABDOMEN: Soft. Bowel sounds are present. No masses. No tenderness. EXTREMITIES: No pedal edema. No calf tenderness. NEUROLOGICAL: Patient is awake, alert and oriented x3. Cranial nerves 2 through 12 are grossly intact. Please refer to medication reconciliation sheet for a list of medications. The impression and plan of care has been dictated by Danuta Winchester, Nurse Practitioner as directed. Dr. Lilliana MD I have performed a history and examination and MDM of this patient, discussed the same with the dictator, and agree with the dictator's assessment and plan as written ,documented as a scribe. Based on total visit time, I have performed more than 50% of the visit. Patient Condition at Discharge: Fair Plan - Discharge Summary New Discharge Prescriptions: New chlordiazePOXIDE HCl [Librium] 25 mg PO QID #18 cap Thiamine [Vitamin B-1] 100 mg PO DAILY #30 tab Folic Acid 1 mg PO DAILY #30 tab Multivitamins, Thera [Multivitamin (formulary)] 1 each PO DAILY #30 tab Continue Apixaban [Eliquis] 5 mg PO BID #60 tab Discharge Medication List Apixaban [Eliquis] 5 mg PO BID #60 tab 07/19/23 [Rx] Folic Acid 1 mg PO DAILY #30 tab 07/19/23 [Rx] Multivitamins, Thera [Multivitamin (formulary)] 1 each PO DAILY #30 tab 07/19/23 [Rx] Thiamine [Vitamin B-1] 100 mg PO DAILY #30 tab 07/19/23 [Rx] chlordiazePOXIDE HCl [Librium] 25 mg PO QID #18 cap 07/19/23 [Rx] Follow up Appointment(s)/Referral(s): Nonstaff,Physician [REFERRING] - 1-2 days Patient Instructions/Handouts: Alcohol Withdrawal (DC) Activity/Diet/Wound Care/Special Instructions: Activity limited until follow-up Strongly recommend going back to inpatient alcohol rehab Continue Librium taper until finished Avoid all alcohol intake Follow-up primary care provider on discharge Discharge Disposition: OTHER INSTITUTION NOT DEFINED
== END 2023-07-19 10:20 | disposition other institution (70) | DRG 775 ==
LOC: EC 02:36 → 2SICU 04:53
PROVIDERS: ADMIT Hospitalist; ATTEND Hospitalist
PROC: 02HV33Z Insertion of Infusion Device into Superior Vena Cava, Percutaneous Approach (ICD-10-PCS; principal; 2023-07-18)
DX: F10.229 Alcohol dependence with intoxication, unspecified (principal); Y90.7 Blood alcohol level of 200-239 mg/100 ml; F10.231 Alcohol dependence with withdrawal delirium; R79.89 Other specified abnormal findings of blood chemistry; F41.0 Panic disorder [episodic paroxysmal anxiety]; M54.9 Dorsalgia, unspecified; G89.29 Other chronic pain; F41.9 Anxiety disorder, unspecified; R56.9 Unspecified convulsions; Z79.01 Long term (current) use of anticoagulants; Z86.718 Personal history of other venous thrombosis and embolism; Z87.891 Personal history of nicotine dependence; Z91.199 Patient's noncompliance with other medical treatment and regimen due to unspecified reason; Z28.310 Unvaccinated for COVID-19
CPT/HCPCS: 36415; 36556; 71045; 80053; 80306; 80320; 81001; 83735; 85025; 96361; 96372; 96374; 96376; 99291

== ENCOUNTER 2023-12-31 21:27 | Inpatient (IN) | payer OTHER ==
[2023-12-31] MEDS: THIAMINE 100 MG/ML 2 ML VIAL IM STA (22:01)
[2023-12-31] MEDS ORDERED: NALOXONE 0.4 MG/ML 1 ML VIAL IV PRN (22:33)
--- NOTE | 2023-12-31 22:40 | ED ---
General Adult HPI - General Chief complaint: Alcohol Stated complaint: ETOH/Withdrawls Time Seen by Provider: 12/31/23 21:54 Source: patient, RN notes reviewed, old records reviewed Mode of arrival: ambulatory Limitations: no limitations - History of Present Illness Initial comments: 33-year-old male with history of daily alcohol abuse drinking upwards of a gallon of vodka. Patient states he drank just prior to arrival. He has had previous alcohol withdrawal seizure. Patient attempted to check into rehabilitation earlier today. Patient was transported by paramedics, significant tremor hypertensive and tachycardic. - Related Data Previous Rx's Medication Instructions Recorded Apixaban [Eliquis] 5 mg PO BID #60 tab 07/19/23 Folic Acid 1 mg PO DAILY #30 tab 07/19/23 Multivitamins, Thera [Multivitamin 1 each PO DAILY #30 tab 07/19/23 (formulary)] Thiamine [Vitamin B-1] 100 mg PO DAILY #30 tab 07/19/23 chlordiazePOXIDE HCl [Librium] 25 mg PO QID #18 cap 07/19/23 Allergies Allergy/AdvReac Type Severity Reaction Status Date / Time No Known Allergies Allergy Verified 12/31/23 21:42 Review of Systems ROS Statement: Those systems with pertinent positive or pertinent negative responses have been documented in the HPI. ROS Other: All systems not noted in ROS Statement are negative. Past Medical History Past Medical History: No Reported History Additional Past Medical History / Comment(s): back pain, history of delirium tremens, history of alcoholism, history of chronic back pain, history of anxiety, and history of panic disorder. History of Any Multi-Drug Resistant Organisms: None Reported Past Surgical History: No Surgical Hx Reported Past Anesthesia/Blood Transfusion Reactions: No Reported Reaction Past Psychological History: Anxiety Smoking Status: Former smoker Past Alcohol Use History: Abuse, Daily, Heavy Past Drug Use History: Marijuana - Past Family History Father Additional Family Medical History / Comment(s): shoulder sx Mother History Unknown: Yes Additional Family Medical History / Comment(s): healthy General Exam Limitations: no limitations General appearance: alert, appears intoxicated, anxious Head exam: Present: atraumatic, normocephalic Eye exam: Present: normal appearance, PERRL ENT exam: Present: normal exam Neck exam: Present: normal inspection. Absent: tenderness, meningismus Respiratory exam: Present: normal lung sounds bilaterally. Absent: wheezes Cardiovascular Exam: Present: normal rhythm, tachycardia GI/Abdominal exam: Present: soft. Absent: distended, tenderness Extremities exam: Present: normal inspection, normal capillary refill Neurological exam: Present: alert, oriented X3 Psychiatric exam: Present: anxious Skin exam: Present: warm, dry, intact. Absent: cyanosis, diaphoretic Course Vital Signs 12/31/23 21:35 Temperature 98.5 F Pulse Rate 128 H Respiratory 20 Rate Blood Pressure 131/87 O2 Sat by Pulse 91 L Oximetry Medical Decision Making - Medical Decision Making Was pt. sent in by a medical professional or institution (TALYA Sampson, METAL HANGING SUPERVISOR, urgent care, hospital, or snf...) When possible be specific @ -[No] Did you speak to anyone other than the patient for history (EMS, parent, family, police, friend...)? What history was obtained from this source @ -[No] Did you review nursing and triage notes (agree or disagree)? Why? @ -[I reviewed and agree with nursing and triage notes] Were old charts reviewed (outside hosp., previous admission, EMS record, old EKG, old radiological studies, urgent care reports/EKG's, snf records)? Report findings @ -[No old charts were reviewed] Differential Diagnosis delirium tremens, alcohol withdrawal seizure EKG interpreted by me (3pts min.). @ -[As above] X-rays interpreted by me (1pt min.). @ -[None done] CT interpreted by me (1pt min.). @ -[None done] U/S interpreted by me (1pt. min.). @ -[None done] What testing was considered but not performed or refused? (CT, X-rays, U/S, labs)? Why? @ -[None] What meds were considered but not given or refused? Why? @ -[None] Did you discuss the management of the patient with other professionals (professionals i.e. TALYA Sampson, METAL HANGING SUPERVISOR, lab, RT, psych nurse, social media campaign manager, operations support manager, teacher, chief commercial officer, social work case manager)? Give summary @ -[EMH Was smoking cessation discussed for >3mins.? @ -[No] Was critical care preformed (if so, how long)? @Yes 35 minutes Were there social determinants of health that impacted care today? How? (Homelessness, low income, unemployed, alcoholism, drug addiction, transportation, low edu. Level, literacy, decrease access to med. care, care home, rehab)? @ -[No] Was there de-escalation of care discussed even if they declined (Discuss DNR or withdrawal of care, Hospice)? DNR status @ -[No] What co-morbidities impacted this encounter? (DM, HTN, Smoking, COPD, CAD, Cancer, CVA, ARF, Chemo, Hep., AIDS, mental health diagnosis, sleep apnea, morbid obesity)? @ -Alcohol abuse Was patient admitted / discharged? Hospital course, mention meds given and route, prescriptions, significant lab abnormalities, going to OR and other pertinent info. @ -33-year-old male with alcohol withdrawal history of alcohol withdrawal seizure. Patient's is placed on benzodiazepines for withdrawal. Laboratory studies are ordered but are difficult to obtain due to poor IV access. These results are pending. Undiagnosed new problem with uncertain prognosis? @ -[No] Drug Therapy requiring intensive monitoring for toxicity (Heparin, Nitro, Insulin, Cardizem)? @ -[No] Were any procedures done? @ -[No] Diagnosis/symptom? @ -[Alcohol withdrawal Acute, or Chronic, or Acute on Chronic? @ -Acute Uncomplicated (without systemic symptoms) or Complicated (systemic symptoms)? @ -[default] Side effects of treatment? @ -[No] Exacerbation, Progression, or Severe Exacerbation? @ -[No] Poses a threat to life or bodily function? How? (Chest pain, [place], [place], pneumonia, PE, COPD, DKA, ARF, appy, cholecystitis, CVA, Diverticulitis, Homicidal, Suicidal, threat to staff... and all critical care pts) @ -[Yes, alcohol withdrawal Critical Care Time Critical Care Time: Yes Total Critical Care Time: 35 Disposition Clinical Impression: Alcohol withdrawal Disposition: ADMITTED IP TO THIS HOSP Condition: Serious Instructions (If sedation given, give patient instructions): Alcohol Withdrawal (ED) Is patient prescribed a controlled substance at d/c from ED?: No Referrals: None,Stated [Primary Care Provider] - 1-2 days Time of Disposition: 22:40
[2024-01-01 00:11] LABS: Basophils % (A) 1 %; Eosinophils # (A) 0.1 k/uL (0-0.7); Eosinophils % (A) 1 %; HCT 51.8 % (39.0-53.0); HGB 17.3 gm/dL (13.0-17.5); Lymphocytes # (A) 1.7 k/uL (1.0-4.8); Lymphocytes % (A) 21 %; MCHC 33.3 g/dL (31.0-37.0); MCV 90.1 fL (80.0-100.0); Mean Platelet Volume 7.8; Monocytes # (A) 0.2 k/uL (0-1.0); Monocytes % (A) 2 %; Neutrophils # (A) 6.1 k/uL (1.3-7.7); Neutrophils % (A) 74 %; Platelet Count 413 k/uL (150-450); RBC 5.75 m/uL (4.30-5.90); RDW 14.7 % (11.5-15.5); WBC 8.3 k/uL (3.8-10.6)
[2024-01-01 00:30] LABS: Partial Thromboplastin Time 25.1 sec (22.0-30.0); Prothrombin Time 10.9 sec (10.0-12.5)
[2024-01-01 00:39] LABS: ALT 22 U/L (4-49); AST 64 U/L (17-59); African American GFR (CKD) >90 (>60 ml/min/1.73 sqM); Albumin 5.2 g/dL (3.5-5.0); Alkaline Phosphatase 69 U/L (38-126); Anion Gap 13 mmol/L; Blood Urea Nitrogen 9 mg/dL (9-20); Calcium 9.5 mg/dL (8.4-10.2); Carbon Dioxide 30 mmol/L (22-30); Chloride 104 mmol/L (98-107); Glucose 96 mg/dL (74-99); Magnesium 1.7 mg/dL (1.6-2.3); Non-African American GFR(CKD) >90 (>60 ml/min/1.73 sqM); Sodium 147 mmol/L (137-145); Total Bilirubin 1.4 mg/dL (0.2-1.3); Total Protein 8.6 g/dL (6.3-8.2)
[2024-01-01 00:52] LABS: Alcohol 343 mg/dL
[2024-01-01 00:53] LABS: Potassium 5.9 mmol/L (3.5-5.1)
[2024-01-01] MEDS: SODIUM CHLORIDE 0.9% 1,000 ML IV ONE ×2 (01:35→02:19)
[2024-01-01] MEDS: LORazepam 2 MG/ML INJ IV PRN ×3 (01:42→21:10)
[2024-01-01] MEDS: SODIUM CHLORIDE 0.9% 500 ML 500 ML IV ONE (02:18)
[2024-01-01] MEDS: SODIUM CHLORIDE 0.9% 1,000 ML IV SCH (05:39)
[2024-01-01] MEDS: THIAMINE 100 MG TAB PO SCH (11:07)
[2024-01-01 11:25] LABS: ALT 15 U/L (4-49); AST 45 U/L (17-59); African American GFR (CKD) >90 (>60 ml/min/1.73 sqM); Albumin 3.8 g/dL (3.5-5.0); Alkaline Phosphatase 59 U/L (38-126); Anion Gap 6 mmol/L; Blood Urea Nitrogen 6 mg/dL (9-20); Calcium 8.5 mg/dL (8.4-10.2); Carbon Dioxide 29 mmol/L (22-30); Chloride 108 mmol/L (98-107); Glucose 96 mg/dL (74-99); Magnesium 1.5 mg/dL (1.6-2.3); Non-African American GFR(CKD) >90 (>60 ml/min/1.73 sqM); Potassium 3.6 mmol/L (3.5-5.1); Sodium 143 mmol/L (137-145); Total Protein 6.5 g/dL (6.3-8.2)
[2024-01-01] MEDS: chlordiazePOXIDE 25 MG CAP PO SCH (13:37)
[2024-01-01] MEDS ORDERED: Potassium Replacement Protocol 1 EACH MISC MISCELLANE PRN (15:55)
[2024-01-01] MEDS ORDERED: Magnesium Replacement Protocol 1 EACH MISC MISCELLANE PRN (15:55)
--- NOTE | 2024-01-01 16:06 | P.HPIM ---
History of Present Illness H&P Date: 01/01/24 This is a pleasant 33-year-old male who presented to the emergency department with severe alcohol withdrawal and reports would like to detox from withdrawals. Patient reports he has had previous attempts at going to inpatient alcohol rehab and quitting and continues to try to quit although has been unsuccessful. Patient with a lot of life stressors and continues to drink approximately 1 gallon of vodka daily. Patient reports his last drink was yesterday evening at 8 PM prior to arriving here. Patient presented to the emergency department and alcohol level was 343, white count was normal, hemoglobin 17.3, platelets 413, sodium 147 with a potassium of 5.9, creatinine 0.64, lactic acid was 2.4, magnesium 1.5, total bili is 1.4 with an AST of 64. Patient was placed on CIWA protocol and admitted for alcohol intoxication with acute delirium tremens. Patient reports he lives in [facility] and does not currently have a primary care provider. Per ER documentation patient was attempting to check into rehabilitation earlier today and drank prior to arrival. Labs reviewed from this morning and magnesium found to be low and will replace per protocol. Continue CIWA protocol and also added Librium and supportive care. REVIEW OF SYSTEMS: CONSTITUTIONAL: No fever, no malaise, no fatigue. HEENT: No recent visual problems or hearing problems. Denied any sore throat. CARDIOVASCULAR: No chest pain, orthopnea, PND, no palpitations, no syncope. PULMONARY: No shortness of breath, no cough, no hemoptysis. GASTROINTESTINAL: No diarrhea, no nausea, no vomiting, no abdominal pain. NEUROLOGICAL: No headaches, no weakness, no numbness. HEMATOLOGICAL: Denies any bleeding or petechiae. GENITOURINARY: Denies any burning micturition, frequency, or urgency. MUSCULOSKELETAL/RHEUMATOLOGICAL: Denies any joint pain, swelling, or any muscle pain. ENDOCRINE: Denies any polyuria or polydipsia. The rest of the 14-point review of systems is negative. PHYSICAL EXAMINATION: GENERAL: The patient is alert and oriented x3, tremulous and appears to be in active withdrawal. Well developed, well nourished. Unkempt, pale HEENT: Pupils are round and equally reacting to light. EOMI. No scleral icterus. No conjunctival pallor. Normocephalic, atraumatic. No pharyngeal erythema. No t hyromegaly. CARDIOVASCULAR: S1 and S2 muffled, tacky PULMONARY: Chest is clear to auscultation, no wheezing or crackles. ABDOMEN: Soft, nontender, nondistended, normoactive bowel sounds. No palpable organomegaly. MUSCULOSKELETAL: No joint swelling or deformity. EXTREMITIES: No cyanosis, clubbing, or pedal edema. Tremors noted of upper extremities NEUROLOGICAL: Gross neurological examination did not reveal any focal deficits. SKIN: No rashes. Assessment: Acute alcohol intoxication with acute alcohol withdrawal and delirium tremens Lactic acidosis secondary to above Heavy daily EtOH use, patient reports 1 gallon of vodka daily History of previous attempts at quitting although unsuccessful Hypomagnesemia Hypokalemia History of anxiety and panic disorder Continued ongoing nicotine dependence THC use GI prophylaxis DVT prophylaxis Full code Plan: Patient admitted for alcohol intoxication with acute alcohol withdrawal and delirium tremens Continue CIWA protocol and will also add Librium Monitor closely for withdrawals as patient is actively withdrawing and has significant history of large doses of alcohol daily and previous episodes of withdrawals. Patient reports he was never hospitalized in the ICU for severe withdrawals Replace electrolytes including potassium and magnesium per protocol and continue with gentle hydration and will follow-up on repeat labs Encouraged increase activity as tolerated Social work consult to discuss discharge planning to inpatient alcohol rehab. The impression and plan of care has been dictated by Nurse Rasheeda Prac titioner as directed. Dr. Lilliana MD I have performed a history and examination and MDM of this patient, discussed the same with the dictator, and agree with the dictator's assessment and plan as written ,documented as a scribe. Based on total visit time, I have performed more than 50% of the visit. Past Medical History Past Medical History: No Reported History Additional Past Medical History / Comment(s): back pain, history of delirium tremens, history of alcoholism, history of chronic back pain, history of an xiety, and history of panic disorder. History of Any Multi-Drug Resistant Organisms: None Reported Past Surgical History: No Surgical Hx Reported Past Anesthesia/Blood Transfusion Reactions: No Reported Reaction Past Psychological History: Anxiety Smoking Status: Former smoker Past Alcohol Use History: Abuse, Daily, Heavy Past Drug Use History: Marijuana - Past Family History Father Additional Family Medical History / Comment(s): shoulder sx Mother History Unknown: Yes Additional Family Medical History / Comment(s): healthy Medications and Allergies Home Medications Medication Instructions Recorded Confirmed Type No Known Home Medications 01/01/24 01/01/24 History Allergies Allergy/AdvReac Type Severity Reaction Status Date / Time No Known Allergies Allergy Verified 01/01/24 07:59 Physical Exam Vitals: Vital Signs Temp Pulse Resp BP Pulse Ox 01/01/24 08:00 83 18 129/89 98 01/01/24 07:03 74 16 125/89 95 01/01/24 05:32 96 16 101/62 95 01/01/24 04:08 78 16 98/61 01/01/24 03:15 73 16 109/68 99 12/31/23 21:35 98.5 F 128 H 20 131/87 91 L Intake and Output 12/31/23 01/01/24 01/01/24 22:59 06:59 14:59 Other: Weight 68.039 kg Results CBC & Chem 7: 12/31/23 23:59 01/01/24 10:32 Labs: Abnormal Lab Results - Last 24 Hours (Table) 12/31/23 12/31/23 01/01/24 Range/Units 23:59 23:59 03:30 Sodium 147 H (137-145) mmol/L Potassium 5.9 H (3.5-5.1) mmol/L Creatinine 0.64 L (0.66-1.25) mg/dL Plasma Lactic Acid David 2.4 H* 2.3 H* (0.7-2.0) mmol/L Total Bilirubin 1.4 H (0.2-1.3) mg/dL AST 64 H (17-59) U/L Total Protein 8.6 H (6.3-8.2) g/dL Albumin 5.2 H (3.5-5.0) g/dL Serum Alcohol 343 H* mg/dL 01/01/24 Range/Units 06:00 Sodium (137-145) mmol/L Potassium (3.5-5.1) mmol/L Creatinine (0.66-1.25) mg/dL Plasma Lactic Acid David 2.3 H* (0.7-2.0) mmol/L Total Bilirubin (0.2-1.3) mg/dL AST (17-59) U/L Total Protein (6.3-8.2) g/dL Albumin (3.5-5.0) g/dL Serum Alcohol mg/dL
[2024-01-01] MEDS: POTASSIUM CHLORIDE ER 20 MEQ TAB.ER PO SCH (16:51)
[2024-01-01] MEDS: MAGNESIUM SULFATE-D5W PMX 1 GM in DEXTROSE/WATER 1 100ML.BAG IVPB SCH (17:01)
[2024-01-01] MEDS ORDERED: chlordiazePOXIDE 25 MG CAP ONE (23:26)
[2024-01-02 04:14] VITALS: BP 122/63; PULSE 69; RESP 16; TEMP 98
[2024-01-02] MEDS ORDERED: ONDANSETRON 4 MG/2 ML VIAL IVP PRN (05:17)
[2024-01-02] MEDS ORDERED: ACETAMINOPHEN TAB 325 MG TAB PO PRN (05:17)
[2024-01-02] MEDS ORDERED: IBUPROFEN 400 MG TAB PO PRN (05:18)
[2024-01-02] MEDS: POTASSIUM CHLORIDE ER 20 MEQ TAB.ER PO STA (05:29)
[2024-01-02] MEDS: THIAMINE 100 MG TAB PO SCH (08:45)
[2024-01-02] MEDS: PANTOPRAZOLE 40 MG TABLET PO SCH (08:45)
[2024-01-02] MEDS: FOLIC ACID 1 MG TAB PO SCH (12:00)
[2024-01-02] MEDS: MULTIVITAMINS, THERA 1 EACH TAB PO SCH (12:00)
--- NOTE | 2024-01-08 06:08 | P.DS ---
Providers Date of admission: 12/31/23 22:35 Expected date of discharge: 01/02/24 Attending physician: Chandu Guadalupe Primary care physician: Stated None Hospital Course: Final diagnosis Acute alcohol intoxication with acute alcohol withdrawal and delirium tremens Lactic acidosis secondary to above Heavy daily EtOH use, patient reports 1 gallon of vodka daily History of previous attempts at quitting although unsuccessful Hypomagnesemia Hypokalemia History of anxiety and panic disorder Continued ongoing nicotine dependence THC use GI prophylaxis DVT prophylaxis Full code Discharge disposition Patient is being discharged in a stable condition with guarded prognosis to home. Patient will follow-up with his primary care provider in [place] in the outpatient setting upon discharge. Patient is to continue with Librium taper and outpatient follow-up with inpatient alcohol rehab as scheduled. Total time taken is greater than 35 minutes. Hospital course This is a 33-year-old male who was recently admitted with acute alcohol i ntoxication with early acute alcohol withdrawal and delirium tremens being closely monitored. Patient maintained on CIWA protocol along with Librium taper and tolerating. Patient with electrolyte abnormalities that have been replaced and improved although patient was refusing any further lab draws or vital signs. Patient initially attempting to leave AGAINST MEDICAL ADVICE although has not required Ativan and will be discharged on Librium taper. Attempted to contact his pharmacy multiple times in [place] per request and they were not open. Prescription for Librium sent to [facility] for patient to belt picker prior to leaving. Patient was strongly encouraged to attend inpatient alcohol rehab as he reports he would like to try to quit drinking. Currently no reports of chest pain, shortness of breath, or palpitations. Patient is afebrile. No reports of nausea or vomiting and patient is tolerating diet. Patient will be discharged home today. Guarded prognosis and high risk for readmissions given patient's continued alcohol use and noncompliance. Physical exam: Gen: This is a 33-year-old male who is awake, alert and oriented x 3, well- developed, unkempt HEENT: Head is atraumatic, normocephalic. Pupils equal, round. Sclerae is anicteric. NECK: Supple. No JVD. No lymphadenopathy. No thyromegaly. LUNGS: Clear to auscultation. No wheezes or rhonchi. No intercostal retractions . HEART: Regular rate and rhythm. No murmur. ABDOMEN: Soft. Bowel sounds are present. No masses. No tenderness. EXTREMITIES: No pedal edema. No calf tenderness. Mild tremors noted at times NEUROLOGICAL: Patient is awake, alert and oriented x3. Cranial nerves 2 through 12 are grossly intact. Please refer to medication reconciliation sheet for a list of medications. The impression and plan of care has been dictated by Danuta Winchester, Nurse Practitioner as directed. Dr. Lilliana MD I have performed a history and examination and MDM of this patient, discussed the same with the dictator, and agree with the dictator's assessment and plan as written ,documented as a scribe. Based on total visit time, I have performed more than 50% of the visit. Patient Condition at Discharge: Fair Plan - Discharge Summary New Discharge Prescriptions: New chlordiazePOXIDE HCl [Librium] 50 mg PO QID #26 cap Ibuprofen [Motrin] 400 mg PO Q6HR PRN tab PRN Reason: Pain Thiamine [Vitamin B-1] 100 mg PO BID-W/MEALS #60 tab Acetaminophen Tab [Tylenol] 650 mg PO Q6HR PRN tab PRN Reason: Fever And/ Or Pain Discharge Medication List Acetaminophen Tab [Tylenol] 650 mg PO Q6HR PRN tab 01/02/24 [Rx] Ibuprofen [Motrin] 400 mg PO Q6HR PRN tab 01/02/24 [Rx] Thiamine [Vitamin B-1] 100 mg PO BID-W/MEALS #60 tab 01/02/24 [Rx] chlordiazePOXIDE HCl [Librium] 50 mg PO QID #26 cap 01/02/24 [Rx] Follow up Appointment(s)/Referral(s): None,Stated [Primary Care Provider] - 1-2 days Patient Instructions/Handouts: Alcohol Withdrawal (ED), Alcohol Withdrawal (DC), Encephalopathy (DC), Capsule Endoscopy (DC) Activity/Diet/Wound Care/Special Instructions: Activity limited until follow-up Follow-up with primary care provider on discharge Strongly recommend inpatient alcohol rehab Continue Librium taper Avoid all alcohol intake Discharge/Stand Alone Forms: AA Meetings [facility], [facility] Resources, Outpatient Counseling, Inp Substance Abuse Facilities Discharge Disposition: HOME SELF-CARE
== END 2024-01-02 18:00 | disposition home or self-care (01) | DRG 775 ==
LOC: EC 21:27 → 3SCARD 22:35 → 5NMEDONC 01-01 12:07
PROVIDERS: ADMIT Hospitalist; ATTEND Hospitalist
DX: F10.231 Alcohol dependence with withdrawal delirium (principal); F10.229 Alcohol dependence with intoxication, unspecified; E87.20 Acidosis, unspecified; E83.42 Hypomagnesemia; E87.6 Hypokalemia; F41.0 Panic disorder [episodic paroxysmal anxiety]; Y90.8 Blood alcohol level of 240 mg/100 ml or more; Z91.199 Patient's noncompliance with other medical treatment and regimen due to unspecified reason; Z87.891 Personal history of nicotine dependence; Z79.01 Long term (current) use of anticoagulants
CPT/HCPCS: 80053; 80320; 83605; 83735; 85025; 85610; 85730; 96361; 96372; 96374; 96376; 99291